=== PATIENT | female | born 2000 | race Caucasian/White ===

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

== ENCOUNTER → 2021-09-12 10:59 | Outpatient (CLI) | payer OTHER, SELFPAY | PROVIDERS: Visit Provider Family Medicine | DX: Z23 Encounter for immunization (principal) ==

== ENCOUNTER 2022-12-14 21:42 | Emergency (ER) | payer BC, SELFPAY ==
[2022-12-14 21:42] VITALS: BP 122/72; PULSE 84; RESP 18; TEMP 36.9; O2SAT 96
--- NOTE | 2022-12-14 22:01 | EDS_ITS ---
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 After small bowel movement pain came about. No nausea or vomiting. Has not urinated. Yesterday states abnormal menstrual bleeding resolved, however her last menstrual period was 2 weeks ago. Appendectomy in the past. No history of similar. Feels different than menstrual cramps. No fevers chills or sweats. History of anxiety, depression, ADHD. She states recovering opiate dependence and would like to avoid this. She states she is compliant with her control, states no chance of . Prior similar symptoms: No PFSH PFS Medical History (Updated 12/15/22 @ 00:[address] Jr Lacy DO) Gastric ulcer Home Medications pantoprazole 40 mg tablet,delayed release 40 mg PO DAILY #30 tabs 07/04/19 [Rx Last Taken Unknown] dextroamphetamine-amphetamine 30 mg tablet 30 mg PO DAILY 08/04/19 [History Last Taken Unknown] guanfacine 1 mg tablet,extended release 24 hr 1 mg PO QHS 08/04/19 [History Last Taken Unknown] lamotrigine 100 mg tablet,extended release 24 hr 100 mg PO BID 08/04/19 [History Last Taken Unknown] sertraline 100 mg tablet 150 mg PO DAILY 08/04/19 [History Last Taken Unknown] hyoscyamine sulfate 0.125 mg tablet (Levsin) 0.125 mg PO TID PRN abominal pain #20 tabs 12/15/22 [Rx Last Taken Unknown] Allergy/AdvReac Type Severity Reaction Status Date / Time hydrocodone AdvReac Upset Verified 08/18/19 13:54 Stomach NSAIDS (Non-Steroidal AdvReac Other Verified 08/18/19 13:54 Anti-Inflamma Surgical History S/P appendectomy S/P tonsillectomy S/P wisdom tooth extraction S/P wrist surgery Social History Smoking Status: Current some day smoker tobacco type: e-cigarettes alcohol intake: current alcohol intake frequency: a few times a week ROS ROS ED Constitutional Constitutional ED: Denies chills, fever(s) or sweats Eyes Eyes: Denies change in vision ENT ENT ED: Denies dysphagia or sore throat Cardiovascular Cardiovascular: Denies chest pain, leg edema, palpitations or racing heartbeat Respiratory/Chest Respiratory/Chest: Denies cough, dyspnea or dyspnea on exertion Gastrointestinal Gastrointestinal: Reports abdominal pain; Denies diarrhea, nausea or vomiting Genitourinary Genitourinary ED: Denies dysuria, hematuria or urinary frequency Musculoskeletal Musculoskeletal: Denies back pain, extremity pain or neck pain Integumentary Denies rash or wounds Neurologic Neurologic: Denies headache(s), paresthesias or weakness EXAM Physical Exam Const Vital Signs: 12/14/22 21:42 Temperature 98.4 F Temperature Source Temporal Pulse Rate 84 Respiratory Rate 18 Blood Pressure 122/72 H Blood Pressure Mean 88 Pulse Ox 96 Oxygen Delivery Method Room Air Positive well nourished and well developed Constitutional Narrative: Nontoxic General Appearance ED: well developed HEENT Reports moist mucous membranes normocephalic and atraumatic Eyes PERRL, EOMs intact bilaterally and conjunctivae normal General Eye ED: Yes normal appearance of both eyes Neck no lymphadenopathy and supple General: Negative for tenderness Chest Wall Chest: Negative for tenderness Resp normal respiratory effort and normal air movement Effort and Inspection: symmetric chest movement; Negative for respiratory distress Cardio regular rate, regular rhythm and no murmurs Peripheral Pulses: pulses 2+ throughout GI normal to inspection, nondistended, normoactive bowel sounds GI Narrative: Tender across the lower mid abdomen, no guarding or rebound. Negative Escobar's. Palpation: Negative for guarding or rebound tenderness present Back/Spine no CVA tenderness and no thoracic nor lumbar tenderness Extremity normal to inspection General Extremety ED: Negative for edema or tenderness General Extremity: Negative for edema Neuro oriented x3 and no sensory deficits noted Sensorium / Orientation: awake and alert Skin no rashes or lesions noted and no wounds MDM MDM MDM Narrative Medical decision making narrative: Interventions / MDM: Differential diagnosis: Ovarian cyst, nonspecific abdominal pain Diagnosis considered but do not suspect: Nonsurgical abdomen, lower suspicion for torsion or appendicitis My EKG interpretation: N/A Imaging independently reviewed and interpreted by myself: N/A External documents reviewed: N/A Test considered but not ordered:N/A ED course: Patient is tenderness lower abdomen no vomiting or diarrhea. I did check her lab labs which are normal. She is below. Reevaluation was improving. Her hCG was negative. Awaiting urine, therefore Tylenol was given. Urine obtained no infection noted blood however menstrual period started again yesterday abnormal for her. Re-evaluation: stable and improved symptoms. Abdomen soft on reevaluation. Do not suspect a surgical abdomen at this time. She is given gynecology outpatient follow-up as she goes to school here and she has 1 back home. Strict return precautions were discussed. All questions were answered. Disposition discussed with patient/family/significant other: Patient Case discussed with consulting clinician: N/A Lab Data Attestation: I reviewed the patient's lab results. Labs: Laboratory Results - last 24 hr 12/14/22 12/14/22 12/14/22 22:10 22:10 22:10 WBC 7.9 RBC 4.82 Hgb 13.6 Hct 43.1 MCV 89.4 MCH 28.2 MCHC 31.6 L RDW Std Deviation 41.1 RDW Coeff of Delvis 12.5 Plt Count 261 MPV 10.0 Immature Gran % (Auto) 0.100 Neut % (Auto) 55.5 Lymph % (Auto) 33.8 [place] % (Auto) 8.7 Eos % (Auto) 1.4 Baso % (Auto) 0.5 Absolute Neuts (auto) 4.4 Absolute Lymphs (auto) 2.68 Nucleated RBC % 0 Sodium 140 Potassium 4.0 Chloride 106 Carbon Dioxide 27.0 Anion Gap 7 BUN 14 Creatinine 0.88 Estim Creat Clear Calc 79.98 Est GFR (MDRD) Af Amer 104 Est GFR (MDRD) Non-Af 86 BUN/Creatinine Ratio 15.9 Glucose 89 Calcium 8.8 Total Bilirubin 0.40 AST 19 ALT 23 Alkaline Phosphatase 80 Total Protein 7.5 Albumin 3.8 Globulin 3.7 Albumin/Globulin Ratio 1.0 Lipase 264 Serum , Qual NEGATIVE Urine Color Urine Clarity Urine pH Ur Specific [place] Urine Protein Urine Glucose (UA) Urine Ketones Urine Occult Blood Urine Nitrite Urine Bilirubin Urine Urobilinogen Ur Leukocyte Esterase Urine RBC Urine WBC Ur Squamous Epith Cells Urine Bacteria Urine Mucus 12/14/22 22:55 WBC RBC Hgb Hct MCV MCH MCHC RDW Std Deviation RDW Coeff of [place]vis Plt Count MPV Immature Gran % (Auto) Neut % (Auto) Lymph % (Auto) [place] % (Auto) Eos % (Auto) Baso % (Auto) Absolute Neuts (auto) Absolute Lymphs (auto) Nucleated RBC % Sodium Potassium Chloride Carbon Dioxide Anion Gap BUN Creatinine Estim Creat Clear Calc Est GFR (MDRD) Af Amer Est GFR (MDRD) Non-Af BUN/Creatinine Ratio Glucose Calcium Total Bilirubin AST ALT Alkaline Phosphatase Total Protein Albumin Globulin Albumin/Globulin Ratio Lipase Serum , Qual Urine Color Yellow Urine Clarity Clear Urine pH 7.0 Ur Specific [place] 1.010 Urine Protein Negative Urine Glucose (UA) Normal Urine Ketones Negative Urine Occult Blood 25 H Urine Nitrite Negative Urine Bilirubin Negative Urine Urobilinogen Normal Ur Leukocyte Esterase Negative Urine RBC 0-5 SEEN Urine WBC 0 SEEN Ur Squamous Epith Cells 0 SEEN Urine Bacteria 0 SEEN Urine Mucus 0 SEEN Discharge Plan Triage Chief Complaint: Abd Pain ED Provider: Jr Lacy Dx/Rx/DC Orders Clinical Impression: Abdominal pain, Abnormal uterine bleeding Instructions: Abdominal Pain, ED Pelvic Pain, Unknown Cause Prescriptions: New hyoscyamine sulfate [Levsin] 0.125 mg tablet 0.125 mg PO TID PRN (Reason: abominal pain) Qty: 20 0RF No Action pantoprazole 40 MG tablet 40 mg PO DAILY Qty: 30 0RF sertraline 100 MG tablet 150 mg PO DAILY dextroamphetamine-amphetamine 30 MG tablet 30 mg PO DAILY lamotrigine 100 MG tablet extended release 24hr 100 mg PO BID guanfacine 1 MG tablet extended release 24 hr 1 mg PO QHS Primary Care Provider: Care Physician,No Primary Referrals: Albina Mcintyre DO [Med Staff - Active Staff] - 1 Week Care Physician,No Primary [Primary Care Provider] - Activity Restrictions/Additional Instructions: Your pain likely from ovarian cysts. Use medicine as prescribed Tylenol as needed. Follow-up with gynecology. Return if any worsening symptoms. Disposition Disposition: Home, Self Care Discharge Date/Time: 12/15/22 00:50
[2022-12-14] MEDS: Hyoscyamine Sulfate 0.125 MG Tablet 0.25 MG PO (22:16)
[2022-12-14 22:20] VITALS: BMI 25.2
[2022-12-14 22:21] LABS: Absolute Lymphocyte Count 2.68 X10^3/uL (0.83-4.51); Absolute Neutrophil Count 4.4 X10^3/uL (2.0-7.7); Basophil# 0.04 X10^3/uL; Basophil% 0.5 % (0-1); Eosinophil# 0.11 X10^3/uL; Eosinophils% 1.4 % (0-5); Hematocrit 43.1 % (37-47); Hemoglobin 13.6 g/dL (12.0-15.0); Lymphocyte # 2.68 X10^3/ul (0.83-4.51); Lymphocyte % 33.8 % (19-41); Mean Corp Hgb Conc 31.6 g/dL (32-36); Mean Corpuscular Hgb 28.2 pg (27.0-32.0); Mean Corpuscular Volume 89.4 fL (81-99); Monocyte# 0.69 X10^3/uL; Monocyte% 8.7 % (0-10); NRBC Flagged by Analyzer 0 % (0-5); Neutrophil % 55.5 % (47-70); Platelet Count 261 K/mm3 (150-450); RBC Distribution Width CV 12.5 % (11.6-14.6); RBC Distribution Width SD 41.1 fl (35.1-43.9); Red Blood Count 4.82 M/mm3 (4.2-5.4); White Blood Count 7.9 K/mm3 (4.4-11.0)
[2022-12-14 22:33] LABS: Internal QC Validated? YES +Cl - CLEAR BKGD; Pregnancy, Serum, hCG Quali. NEGATIVE Negative
[2022-12-14 22:38] LABS: AST(SGOT) 19 U/L (15-37); Alanine Aminotransfer ALT/SGPT 23 U/L (13-56); Albumin, Serum 3.8 g/dL (3.2-5.0); Alkaline Phosphatase 80 U/L (45-117); Anion Gap 7 (5-15); BUN 14 mg/dL (7-18); BUN/Creat Ratio 15.9 RATIO (10-20); Calcium,Total 8.8 mg/dL (8.5-10.1); Chloride 106 mmol/L (98-107); Creatinine, Serum 0.88 mg/dL (0.55-1.02); EST Glomerular Filtration Rate 86 mL/min (>60); Est Glom Filt Rate - Afr Amer 104 mL/min (>60); Estimated Creatinine Clearance 79.98 ml/min; Globulin 3.7 g/dL (2.2-4.2); Glucose 89 mg/dL (74-106); Lipase 264 U/L (73-393); Protein, Total 7.5 g/dL (6.4-8.2); Sodium Level 140 mmol/L (136-145)
[2022-12-14 23:12] LABS: Bacteria 0 SEEN /hpf (None Seen); Mucous, Urine 0 SEEN /hpf (<or=2+); Squamous Epithelial Cells - UA 0 SEEN /hpf (5-10); White Blood Cells 0 SEEN /hpf (0-5)
[2022-12-14] MEDS: Acetaminophen 500 MG Tablet 1000 MG PO (23:13)
[2022-12-15 00:21] LABS: Color, Urine Yellow (Yellow); Glucose, Dipstick Normal (Normal); Ketone-Dipstick Negative (Negative); Leukocyte Esterase-Dipstick Negative /ul (Negative); Nitrite-Dipstick Negative (Negative); Occult Blood-Urine 25 /ul (Negative); Protein-Dipstick Negative (Negative); Urine Bilirubin Dipstick Negative (Negative); Urine Clarity Clear (Clear); Urine Urobilinogen Normal (Normal)
[2022-12-15 00:29] LABS: Red Blood Cells-Urine 0-5 SEEN /hpf (0-5)
== END 2022-12-15 00:50 | disposition home or self-care (01) ==
PROVIDERS: Emergency Provider Emergency Medicine; Visit Provider Emergency Medicine
DX: R10.9 Unspecified abdominal pain (principal); N93.9 Abnormal uterine and vaginal bleeding, unspecified; F17.290 Nicotine dependence, other tobacco product, uncomplicated; Z79.899 Other long term (current) drug therapy
CPT/HCPCS: 80053; 81001; 83690; 84703; 85025; 99285